=== PATIENT | male | born 1995 | race Caucasian/White ===

== ENCOUNTER 2018-09-17 19:40 | Emergency (ER) | payer SELFPAY ==
[2018-09-17] MEDS ORDERED: Lidocaine 1% 20 ML MDV INJECT ONE (20:47)
--- NOTE | 2018-09-17 20:47 | EDM.PDOC ---
ED HPI GENERAL MEDICAL PROBLEM - General Chief Complaint: Upper Extremity Injury/Pain Stated Complaint: FINGER LACERATION Time Seen by Provider: 09/17/18 20:40 Source of Information: Reports: Patient History Limitations: Reports: No Limitations - History of Present Illness INITIAL COMMENTS - FREE TEXT/NARRATIVE: 22-year-old male presents for a laceration to the left hand third finger ventral aspect. Injury occurred prior to arrival in the ER. Patient reached into his pocket. States his pocket knife was open and he did not realize it. States it cut his distal left hand third finger. Reports significant bleeding. He states that his entire arm feels numb and tingly. He is unsure of his last tetanus but declines one today. Left Finger-Middle Pain Score (Numeric/FACES): 10 - Related Data Allergies Allergy/AdvReac Type Severity Reaction Status Date / Time acetaminophen [From Tylenol] Allergy Cannot Verified 09/17/18 20:13 Remember Home Meds: Home Meds . [No Known Home Meds] 09/17/18 [History] Past Medical History - Past Health History Medical/Surgical History: Denies Medical/Surgical History Social & Family History - Tobacco Use Smoking Status *Q: Current Every Day Smoker Years of Tobacco use: 5 Packs/Tins Daily: 0.4 - Caffeine Use Caffeine Use: Reports: Coffee, Soda - Recreational Drug Use Drug Use in Last 12 Months: Yes Recreational Drug Type: Reports: Marijuana/Hashish Other Recreational Drug Type: medical card [facility] Review of Systems - Review of Systems Review Of Systems: See Below Skin: Reports: Wound (Left hand ventral distal) Neurological: Reports: Numbness (Left arm), Tingling (Left arm) ED EXAM, GENERAL - Physical Exam Exam: See Below Exam Limited By: No Limitations General Appearance: Alert, WD/WN, No Apparent Distress, Anxious Respiratory/Chest: No Respiratory Distress Cardiovascular: Normal Peripheral Pulses, Regular Rate, Rhythm Peripheral Pulses: 3+: Radial (L) Extremities: Normal Inspection (No obvious deformities to the left hand), Normal Capillary Refill Neurological: Alert, Normal Cognition Psychiatric: Normal Affect, Normal Mood, Anxious Skin Exam: Warm, Dry, Normal Color, Wound/Incision (2 cm laceration to the finger pad of the ventral left distal third finger.) ED TRAUMA EXTREMITY PROCEDURES - Laceration/Wound Repair Left Distal Ventral Digit - 3rd (Middle) Lac/Wound Length In cm: 2 Appearance: Subcutaneous, Linear Distal NVT: Neuro & Vascular Intact, No Tendon Injury Anesthetic Type: Local Local Anesthesia - Lidocaine (Xylocaine): 1% Plain Local Anesthetic Volume: 4cc Skin Prep: Saline, Sterile Drape Exploration/Debridement/Repair: No Foreign Material Found Closed With: Sutures Suture Size: 4-0 # of Sutures: 6 Suture Type: Nylon, Interrupted, Simple Sterile Dressing Applied: Nurse Tetanus Status Addressed: Yes Complications: No Course - Vital Signs Last Recorded V/S: Last Vital Signs Temp 97.0 F 09/17/18 20:12 Pulse 110 H 09/17/18 20:12 Resp 20 09/17/18 20:12 BP 152/93 H 09/17/18 20:12 Pulse Ox 100 09/17/18 20:12 - Orders/Labs/Meds Meds: Medications Discontinued Medications Generic Name Dose Route Start Last Admin Trade Name Freq PRN Reason Stop Dose Admin Lidocaine HCl 20 ml 09/17/18 20:47 Xylocaine 1% INJECT 09/17/18 20:48 ONETIME ONE Lidocaine HCl Confirm 09/17/18 20:50 09/17/18 21:33 Xylocaine 1% Administered 09/17/18 20:51 50 ml Dose Administration 50 ml .ROUTE .STK-MED ONE Lidocaine HCl 50 ml 09/17/18 20:55 Xylocaine 1% INJECT 09/17/18 20:56 ONETIME ONE - Re-Assessments/Exams Free Text/Narrative Re-Assessment/Exam: 09/17/18 21:17 6 sutures were placed to the left hand distal ventral finger pad. Patient tolerated well. No complications. Bleeding controlled with suture placement. Offered tetanus but he declined. Discharge instructions as documented. Departure - Departure Time of Disposition: 21:18 Disposition: Home, Self-Care 01 Condition: Good Clinical Impression: Laceration - Discharge Information *PRESCRIPTION DRUG MONITORING PROGRAM REVIEWED*: No *COPY OF PRESCRIPTION DRUG MONITORING REPORT IN PATIENT ARY: No Instructions: Laceration Care, Adult Referrals: PCP,None [Primary Care Provider] - Forms: ED Department Discharge Additional Instructions: [id number] Tylenol or Motrin seen for pain. Wash the wound gentle soap and water twice a day. May apply an antibacterial ointment such as neosporin or bacitrain to the wound. keep the wound covered. Have the sutures removed in [address] [facility] located on the [place] side of the [facility] is open 8 AM to 5 PM Tuesday through Tuesday and will remove the sutures for free. Call [phone] schedule the provider there. Please return to the ER for symptoms change or worsen.
[2018-09-17] MEDS ORDERED: Lidocaine 1% 50 ML MDV ONE (20:50)
[2018-09-17] MEDS ORDERED: Lidocaine 1% 10 ML MDV INJECT ONE (20:55)
== END 2018-09-17 21:25 | disposition home or self-care (01) ==
LOC: JD.ED 19:40
DX: S61.213A Laceration without foreign body of left middle finger without damage to nail, initial encounter (principal); F17.210 Nicotine dependence, cigarettes, uncomplicated; Z88.8 Allergy status to other drugs, medicaments and biological substances; W26.0XXA Contact with knife, initial encounter
CPT/HCPCS: 12001; 99283; J2001; 99282